=== PATIENT | male | born 1980 | race Caucasian/White ===

== ENCOUNTER 2024-03-11 12:37 | Inpatient (IN) | payer OTHER, MEDICAID ==
[~2024-03-11] VITALS: Ht 180.3 cm; Wt 121.0 kg
[2024-03-11 14:19] LABS: BASOPHILS % (AUTO) 0.4 % (0-1); EOSINOPHILS # (AUTO) 0.2 X10'3 (0-0.9); EOSINOPHILS % (AUTO) 1.7 % (0-6); HEMATOCRIT 46.3 % (42.0-52.0); HEMOGLOBIN 15.5 g/dl (14.0-17.9); LYMPHOCYTES # (AUTO) 2.9 X10'3 (1.1-4.8); LYMPHOCYTES % (AUTO) 25.4 % (21-51); MEAN CORPUSCULAR HEMOGLOBIN 30.4 PG (27.0-31.0); MEAN CORPUSCULAR HGB CONC 33.5 g/dL (33.0-36.5); MEAN CORPUSCULAR VOLUME 90.9 FL (78-98); MEAN PLATELET VOLUME 7.9 FL (7.4-10.4); MONOCYTES % (AUTO) 8.4 % (2-12); NEUTROPHILS # (AUTO) 7.4 X10'3 (1.8-7.7); NEUTROPHILS % (AUTO) 64.1 % (42-75); PLATELET COUNT 280 X10'3 (140-440); RED CELL DISTRIBUTION WIDTH 13.7 % (11.5-14.5); WHITE BLOOD COUNT 11.5 X10'3 (4.5-11.0)
[2024-03-11 14:30] LABS: ALANINE AMINOTRANSFERASE 90 U/L (12-78); ALBUMIN 3.9 G/DL (3.4-5.0); ALBUMIN/GLOBULIN RATIO 0.9 (1.1-1.5); ALKALINE PHOSPHATASE 47 IU/L (46-116); ANION GAP 7 (8-16); ASPARTATE AMINO TRANSFERASE 25 U/L (10-37); BILIRUBIN,TOTAL 0.6 MG/DL (0.1-1.0); BLOOD UREA NITROGEN 13 MG/DL (7-18); BUN/CREATININE RATIO 11.6 (10.0-20.0); CALCIUM 9.3 MG/DL (8.5-10.1); CHLORIDE 105 MMOL/L (99-107); CREATININE 1.12 MG/DL (0.60-1.10); GLUCOSE 104 MG/DL (70-104); LIPASE 35 U/L (16-77); POTASSIUM 4.4 MMOL/L (3.5-5.1); SODIUM 141 MMOL/L (135-145); TOTAL CARBON DIOXIDE 28.9 MMOL/L (24-32); TOTAL PROTEIN 8.1 G/DL (6.4-8.2); eCRCL 92 ML/MIN; eGFR 72 ML/MIN
[2024-03-11 16:34] LABS: BILIRUBIN,URINE SMALL (Neg); CLARITY,URINE SLIGHTLY CLOUDY (Clear); COLOR,URINE YELLOW (Yellow); GLUCOSE, URINE NEGATIVE (Neg); KETONES,URINE 40 mg/dl (Neg); LEUKOCYTE ESTERASE ,URINE NEGATIVE (Neg); NITRITES, URINE NEGATIVE (Neg); OCCULT BLOOD,URINE NEGATIVE (Neg); PROTEIN,URINE NEGATIVE (Neg)
[2024-03-11 16:39] LABS: UA COLLECTION TYPE CLN CATCH MIDSTREAM
[2024-03-11 16:40] LABS: MUCUS STRANDS MANY /LPF (Neg); SQUAMOUS EPITHELIAL CELL,UR FEW /LPF (FEW)
[2024-03-11 16:41] LABS: BACTERIA,URINE FEW /HPF (Neg); WBC,URINE 0-4 /HPF (0-4)
[2024-03-11] MEDS: ibuprofen tablet 400 MG TABLET PO ONE (19:30)
[2024-03-11] MEDS ORDERED: potassium Cl 40MEQ/1/2NS 520ml 520 ML IV PRN (20:30)
[2024-03-11] MEDS ORDERED: magnesium Cl slow-release 64mg tablet PO PRN (20:30)
[2024-03-11] MEDS ORDERED: magnesium 4gm in 100ml NS 100 ML IV PRN (20:30)
[2024-03-11] MEDS ORDERED: morphine 2 MG/ML inj. syringe IV PRN (20:30)
[2024-03-11] MEDS ORDERED: magnesium hydroxide 30ml (MOM) UD suspension PO PRN (20:30)
[2024-03-11] MEDS ORDERED: potassium Cl 20 mEq SR tablet PO PRN ×2 (20:30)
[2024-03-11] MEDS ORDERED: magnesium 2GM in 50ml NS 50 ML IV PRN (20:30)
[2024-03-11] MEDS ORDERED: mag hydrox/Alum hydrox/simeth 30ml oral suspension PO PRN (20:30)
[2024-03-11] MEDS ORDERED: HYDROcodone/acetaminophen 10/325mg tab PO PRN (20:30)
[2024-03-11] MEDS ORDERED: acetaminophen 325mg tablet PO PRN ×2 (20:30)
[2024-03-11] MEDS ORDERED: ondansetron/PF 4mg/2ml inj IV PRN (20:30)
[2024-03-11] MEDS ORDERED: HYDROcodone/acetaminophen 5mg/325mg tablet PO PRN (20:30)
[2024-03-11] MEDS: normal saline 1000ml 1,000 ML IV ONE (21:32)
[2024-03-11] MEDS: pantoprazole 40mg Tablet.DR PO ONE (21:32)
[2024-03-11] MEDS ORDERED: PANT-47 PO (21:51)
[2024-03-11 22:30] VITALS: BP 118/66; PULSE 72; RESP 20; TEMP 97.9; O2SAT 95
[2024-03-11 23:00] VITALS: RESP 16; O2SAT 95
[2024-03-12] VITALS (21 sets, daily range): BP systolic 87–156; BP diastolic 45–96; PULSE 43–94; RESP 12–17; TEMP 96.6–99.1; O2SAT 90–99
[2024-03-12] MEDS: normal saline 1000ml 1,000 ML IV SCH (00:45)
[2024-03-12] MEDS: piperacillin/tazo 3.375gm/50ml 50 ML IV SCH (04:11)
[2024-03-12] MEDS: K and/or MAG REPLACEMENT MC SCH (08:00)
[2024-03-12 08:14] LABS: APTT 28 SECONDS (22-32); PROTHROMBIN TIME 10.3 SECONDS (9.0-12.0)
[2024-03-12 08:26] LABS: BASOPHILS % (AUTO) 0.1 % (0-1); EOSINOPHILS # (AUTO) 0.2 X10'3 (0-0.9); EOSINOPHILS % (AUTO) 2.1 % (0-6); HEMATOCRIT 42.3 % (42.0-52.0); HEMOGLOBIN 14.2 g/dl (14.0-17.9); LYMPHOCYTES # (AUTO) 2.7 X10'3 (1.1-4.8); LYMPHOCYTES % (AUTO) 25.6 % (21-51); MEAN CORPUSCULAR HEMOGLOBIN 30.9 PG (27.0-31.0); MEAN CORPUSCULAR HGB CONC 33.5 g/dL (33.0-36.5); MEAN PLATELET VOLUME 8.4 FL (7.4-10.4); MONOCYTES % (AUTO) 9.3 % (2-12); NEUTROPHILS # (AUTO) 6.7 X10'3 (1.8-7.7); NEUTROPHILS % (AUTO) 62.9 % (42-75); PLATELET COUNT 270 X10'3 (140-440); RED CELL DISTRIBUTION WIDTH 13.7 % (11.5-14.5); WHITE BLOOD COUNT 10.7 X10'3 (4.5-11.0)
[2024-03-12 08:52] LABS: ALANINE AMINOTRANSFERASE 64 U/L (12-78); ALBUMIN 3.2 G/DL (3.4-5.0); ALBUMIN/GLOBULIN RATIO 0.9 (1.1-1.5); ALKALINE PHOSPHATASE 36 IU/L (46-116); ANION GAP 9 (8-16); ASPARTATE AMINO TRANSFERASE 19 U/L (10-37); BILIRUBIN,TOTAL 0.6 MG/DL (0.1-1.0); BLOOD UREA NITROGEN 14 MG/DL (7-18); BUN/CREATININE RATIO 14.3 (10.0-20.0); CALCIUM 8.8 MG/DL (8.5-10.1); CHLORIDE 107 MMOL/L (99-107); CREATININE 0.98 MG/DL (0.60-1.10); GLUCOSE 98 MG/DL (70-104); MAGNESIUM 2.2 MG/DL (1.5-2.4); PHOSPHORUS 3.5 MG/DL (2.3-4.5); POTASSIUM 4.1 MMOL/L (3.5-5.1); SODIUM 142 MMOL/L (135-145); TOTAL CARBON DIOXIDE 26.3 MMOL/L (24-32); TOTAL PROTEIN 6.7 G/DL (6.4-8.2); eCRCL 105 ML/MIN; eGFR 84 ML/MIN
[2024-03-12] MEDS: morphine 2 MG/ML inj. syringe IV STA (09:58)
[2024-03-12] MEDS: pantoprazole 40mg Tablet.DR PO SCH (11:04)
[2024-03-12 11:18] LABS: BILIRUBIN,URINE NEGATIVE (Neg); CLARITY,URINE CLEAR (Clear); COLOR,URINE YELLOW (Yellow); GLUCOSE, URINE NEGATIVE (Neg); KETONES,URINE 15 mg/dl (Neg); LEUKOCYTE ESTERASE ,URINE NEGATIVE (Neg); NITRITES, URINE NEGATIVE (Neg); OCCULT BLOOD,URINE NEGATIVE (Neg); PROTEIN,URINE NEGATIVE (Neg)
[2024-03-12 11:20] LABS: UA COLLECTION TYPE CLN CATCH MIDSTREAM
[2024-03-12] MEDS: INDOCYANINE GREEN 25 MG/10 ML VIAL IV ONE (13:04)
[2024-03-12] MEDS: morphine 4 MG/ML inj SYRINge ONE (15:58)
[2024-03-12] MEDS ORDERED: hydrALAZINE 20mg/ml inj. IV PRN (16:05)
[2024-03-12] MEDS ORDERED: meperidine/PF 25mg/ml syringe IV PRN ×2 (16:05)
[2024-03-12] MEDS ORDERED: ondansetron/PF 4mg/2ml inj IV PRN (16:05)
[2024-03-12] MEDS ORDERED: morphine 2 MG/ML inj. syringe IV PRN (16:05)
[2024-03-12] MEDS ORDERED: morphine 4 MG/ML inj SYRINge IV PRN (16:05)
[2024-03-12] MEDS ORDERED: proCHLORperazine 10 MG/2 ml inj IV PRN (16:05)
[2024-03-12] MEDS ORDERED: labetalol 20mg/4ml (5mg/ml) syringe IV PRN (16:05)
[2024-03-12] MEDS: BUPIVAcaine/PF 2.5mg/ml (0.25%) 10ml vial ONE (16:07)
[2024-03-12] MEDS: LIDOcaine 1% (10mg/ml)w/preservative inj. 20ml MDV ONE (16:07)
[2024-03-12] MEDS ORDERED: midazolam 1 mg/ML 2ml injection ONE (16:09)
[2024-03-12] MEDS ORDERED: sevoflurane 250ml liquid IH ONE (16:16)
[2024-03-12] MEDS ORDERED: fentaNYL /PF 50mcg/ml 5ml ampule ONE (16:29)
[2024-03-12] MEDS ORDERED: ePHEDrine 50MG/ML INJ. ONE (16:38)
[2024-03-12] MEDS ORDERED: ondansetron/PF 4mg/2ml inj ONE (16:38)
[2024-03-12] MEDS ORDERED: ceFOXitin 1000 MG inj ONE ×2 (16:38)
[2024-03-12] MEDS ORDERED: LIDOcaine 1%/PF 5ML 10 MG/ML VIAL ONE (16:38)
[2024-03-12] MEDS ORDERED: propofol inj 20 ML IV ONE ×2 (16:38→16:50)
[2024-03-12] MEDS ORDERED: rocuronium 10mg/ml inj IV ONE (16:38)
[2024-03-12] MEDS ORDERED: dexamethasone sod phosphate 4mg/ml inj. ONE (16:38)
[2024-03-12] MEDS ORDERED: 0.9 % SODIUM CHLORIDE 10 ML VIAL ONE (16:39)
[2024-03-12] MEDS: LIDOcaine 1%/PF 5ML 10 MG/ML VIAL IJ ONE (17:03)
[2024-03-12] MEDS ORDERED: neostigmine methylsulfate 1 MG/ML 10ml vial ONE (17:38)
[2024-03-12] MEDS ORDERED: glycopyrrolate 0.2mg/ml inj ONE (17:38)
[2024-03-12] MEDS: meperidine/PF 25mg/ml syringe IV PRN (18:05)
[2024-03-12] MEDS: acetaminophen 1,000mg/100ml IV 100 ML IV ONE (18:07)
[2024-03-12] MEDS: ketorolac tromethamine 15mg/ml inj. IV ONE (18:18)
[2024-03-12] MEDS ORDERED: naloxone 0.4 mg/ml inj IV PRN (18:25)
[2024-03-12] MEDS: oxyCODONE/APAP 5-325mg tablet PO PRN ×2 (18:39→23:00)
[2024-03-12] MEDS: enoxaparin 40mg/0.4ml syringe SQ SCH (20:05)
[2024-03-13 02:00] VITALS: BP 101/65; PULSE 70; RESP 16; TEMP 98.6; O2SAT 94
[2024-03-13] MEDS: ringers solution, lacted 1,000 ML IV SCH (06:29)
[2024-03-13 06:47] VITALS: BP 106/72; PULSE 70; RESP 16; TEMP 97.4; O2SAT 97
[2024-03-13 07:36] LABS: BASOPHILS % (AUTO) 0.1 % (0-1); EOSINOPHILS % (AUTO) 0 % (0-6); HEMATOCRIT 41.3 % (42.0-52.0); HEMOGLOBIN 14.1 g/dl (14.0-17.9); LYMPHOCYTES # (AUTO) 1.7 X10'3 (1.1-4.8); LYMPHOCYTES % (AUTO) 14.9 % (21-51); MEAN CORPUSCULAR HEMOGLOBIN 31.2 PG (27.0-31.0); MEAN CORPUSCULAR HGB CONC 34.2 g/dL (33.0-36.5); MEAN CORPUSCULAR VOLUME 91.2 FL (78-98); MEAN PLATELET VOLUME 8.3 FL (7.4-10.4); MONOCYTES # (AUTO) 0.7 X10'3 (0-0.9); MONOCYTES % (AUTO) 5.7 % (2-12); NEUTROPHILS # (AUTO) 9.1 X10'3 (1.8-7.7); NEUTROPHILS % (AUTO) 79.3 % (42-75); PLATELET COUNT 288 X10'3 (140-440); RED BLOOD COUNT 4.53 X10'6 (4.70-6.10); RED CELL DISTRIBUTION WIDTH 13.5 % (11.5-14.5); WHITE BLOOD COUNT 11.5 X10'3 (4.5-11.0)
[2024-03-13 07:41] LABS: APTT 28 SECONDS (22-32); PROTHROMBIN TIME 10.9 SECONDS (9.0-12.0)
[2024-03-13 07:59] VITALS: RESP 16; O2SAT 97
[2024-03-13 07:59] LABS: ALANINE AMINOTRANSFERASE 96 U/L (12-78); ALBUMIN 3.4 G/DL (3.4-5.0); ALBUMIN/GLOBULIN RATIO 0.9 (1.1-1.5); ALKALINE PHOSPHATASE 47 IU/L (46-116); ANION GAP 11 (8-16); ASPARTATE AMINO TRANSFERASE 47 U/L (10-37); BILIRUBIN,TOTAL 0.6 MG/DL (0.1-1.0); BLOOD UREA NITROGEN 9 MG/DL (7-18); BUN/CREATININE RATIO 8.5 (10.0-20.0); CALCIUM 8.8 MG/DL (8.5-10.1); CHLORIDE 105 MMOL/L (99-107); CREATININE 1.06 MG/DL (0.60-1.10); GLUCOSE 121 MG/DL (70-104); PHOSPHORUS 3.5 MG/DL (2.3-4.5); POTASSIUM 4.3 MMOL/L (3.5-5.1); SODIUM 138 MMOL/L (135-145); TOTAL CARBON DIOXIDE 21.8 MMOL/L (24-32); TOTAL PROTEIN 7.4 G/DL (6.4-8.2); eCRCL 97 ML/MIN; eGFR 77 ML/MIN
[2024-03-13] MEDS: ibuprofen tablet 400 MG TABLET PO PRN (08:50)
[2024-03-13 11:07] VITALS: BP 124/78; PULSE 75; RESP 18; TEMP 97.7; O2SAT 94
[2024-03-13] MEDS ORDERED: HYDR-3965 PO (20:52)
== END 2024-03-13 13:20 | disposition home or self-care (01) | DRG 419 ==
LOC: ER 12:38 → UNDOADMIN 20:26 → ED HOLD 20:26 → ORTHO 4S 22:15 → ED HOLD 22:15
PROVIDERS: ADMIT Surgery; ATTEND Internal Medicine
PROC: 8E0W4CZ Robotic Assisted Procedure of Trunk Region, Percutaneous Endoscopic Approach (ICD-10-PCS; 2024-03-12)
PROC: BF522Z0 Other Imaging of Gallbladder using Fluorescing Agent, Intraoperative (ICD-10-PCS; 2024-03-12)
PROC: 0WQF4ZZ Repair Abdominal Wall, Percutaneous Endoscopic Approach (ICD-10-PCS; 2024-03-12)
PROC: CF1C1ZZ Planar Nuclear Medicine Imaging of Hepatobiliary System, All using Technetium 99m (Tc-99m) (ICD-10-PCS; 2024-03-12)
PROC: 0FT44ZZ Resection of Gallbladder, Percutaneous Endoscopic Approach (ICD-10-PCS; principal; 2024-03-12 16:16)
DX: K80.01 Calculus of gallbladder with acute cholecystitis with obstruction (principal); K82.8 Other specified diseases of gallbladder; K42.9 Umbilical hernia without obstruction or gangrene; K21.9 Gastro-esophageal reflux disease without esophagitis; Z79.899 Other long term (current) drug therapy
CPT/HCPCS: 36415; 76700; 78227; 80053; 81001; 81003; 83690; 83735; 84100; 85025; 85610; 85730; 87081; 93005; 99285; A4215; A4615; A4618; A7000; A9537; G0378; J0131; J0694; J1100; J1650; J1885; J2175; J2250; J2270; J2405; J2543; J2704; J2710; J3010; J3490; J7030; J7120